=== PATIENT | female | born 1965 | race Caucasian/White ===

== ENCOUNTER 2020-04-17 15:54 | IRF | payer BC, SELFPAY ==
--- NOTE | 2020-04-17 16:28 | ADMGEN ---
This patient, Kiley Springer, was admitted to [facility] Room 219-02. Patient/family oriented to hospital policies and general routines including ID bracelet, bed and alarms, visiting hours, pain management, procedures, bathroom and other care routines, personal items, smoking policy, room service/diet, and visiting hours. Information on how to activate the Rapid Response Team has been discussed. Patient/Family are encouraged to report perceived risks to care and to ask questions if they do not understand what they are told or what they should do.
[2020-04-17 16:29] VITALS: BP 130/49; PULSE 62; RESP 16; TEMP 35.9; O2SAT 99; BMI 40.4
[2020-04-17 20:00] VITALS: O2SAT 100
[2020-04-17] MEDS: DOCUSATE SODIUM 100 MG CAPSULE PO (20:23)
[2020-04-17] MEDS: EZETIMIBE 10 MG TABLET PO (20:23)
[2020-04-17] MEDS: SIMVASTATIN 20 MG TABLET PO (20:24)
[2020-04-17] MEDS: FAMOTIDINE 20 MG TABLET PO (20:24)
[2020-04-17] MEDS: HEPARIN SODIUM 5,000 UNITS/ML VIAL 5000 UNITS SUB-Q (20:24)
[2020-04-17 20:40] VITALS: BP 113/42; PULSE 66; RESP 12; TEMP 36.6; O2SAT 100
[2020-04-18 04:44] LABS: Basophils Percent Auto 0.2 % (0.2-1.2); Eosinophils Absolute Auto 0.3 K/mm3 (0-0.3); Eosinophils Percent Auto 4.5 % (0-4.4); Hematocrit 34.6 % (37.0-47.0); Hemoglobin 10.9 g/dL (12.0-15.0); Immature Granulocyte Absolute 0.03 K/mm3 (0.00-0.031); Immature Granulocyte Percent A 0.5 % (0-0.5); Lymphocytes Percent Auto 28.7 % (18.3-44.2); Mean Corpuscular HGB Conc 31.5 g/dl (32-36); Mean Corpuscular Hemoglobin 28.9 pg (26-34); Mean Corpuscular Volume 91.8 fl (80-100); Mean Platelet Volume 10.3 fl (7.4-10.4); Monocytes Absolute Auto 0.5 K/mm3 (0.1-0.6); Monocytes Percent Auto 8.6 % (2.6-8.5); Neutrophils Absolute Auto 3.2 K/mm3 (1.3-6.7); Neutrophils Percent Auto 57.5 % (45.5-73.1); Platelet Count Result 313 k/mm3 (150-375); Red Blood Count 3.77 M/mm3 (4.2-5.4); Red Cell Distribution Width 16.8 % (11.5-14.5); White Blood Count 5.6 K/mm3 (4.5-10.0)
[2020-04-18 04:58] LABS: Anion Gap 9 mmol/L (8-16); Blood Urea Nitrogen 20 mg/dL (7-17); Calcium 9.1 mg/dL (8.4-10.2); Carbon Dioxide 27 mmol/L (22-30); Chloride 106 mmol/L (98-107); Estimated CRCL calculation 92 ml/min; Estimated Glomerular Filt Rate > 60; Glucose 110 mg/dL (65-105); Sodium 142 mmol/L (137-145)
[2020-04-18 05:33] VITALS: BP 141/83; PULSE 64; RESP 14; TEMP 36.7; O2SAT 99
[2020-04-18] MEDS: HEPARIN SODIUM 5,000 UNITS/ML VIAL 5000 UNITS SUB-Q ×3 (06:45→20:03)
[2020-04-18] MEDS: FAMOTIDINE 20 MG TABLET PO ×2 (09:44→20:01)
[2020-04-18] MEDS: CITALOPRAM HYDROBROMIDE 20 MG TABLET 40 MG PO (09:44)
[2020-04-18] MEDS: FLUTICASONE PROPIONATE 0.05% NA SPR 16 GM BTL (*BKC) 2 SPRAY NASAL (09:45)
[2020-04-18] MEDS: ACETAMINOPHEN 325 MG TABLET 650 MG PO (10:59)
--- NOTE | 2020-04-18 11:27 | PM.IMHP ---
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 on April 18, 2020 H and P The patient is a 54-year-old right-handed white woman with a past medical history of asthma, hyperlipidemia and osteoarthritis who initially presented to [facility] and then transferred / admitted to [facility] on March 31, 2020 for sudden onset of severe headache and episode of syncope and dizziness. The patient barely recalls the event and the data is obtained primarily from the screening information and also the medical records. The patient was in her usual state of health until she woke up around 7:00 a.m. on March 31 when she started experiencing symptoms and had a fall. The patient does not recall whether she hit her head or not however did injure her left arm where there is cast for the forearm. The patient denies or recalling at least any history of seizure. The blood pressure was 180/105 and she was started on nicardipine drip. Head CT at the outside hospital showed an acute subarachnoid hemorrhage and she was subsequently transferred to [facility] for further evaluation and management. CTA showed a right middle cerebral artery bifurcation aneurysm. Head CT showed a right frontotemporal/ quadrigeminal cistern subarachnoid hemorrhage. Neurosurgery was consulted and immediate surgical intervention was recommended. The patient was started on Keppra and nicardipine drip was continued. DVT prophylaxis was held 48 hours due to active bleed. The patient underwent a right craniotomy with clipping of complex right mid cerebral artery aneurysm and right frontal EVD placement by Dr. Bah. The EVD was removed on April 10, 2020. The chest x-ray was negative. Left hand x-ray showed an impacted angulated comminuted intra-articular distal radial fracture. She is nonweightbearing to the left upper extremity for nonsurgical fracture. She does have a left forearm brace. The patient remains awake and alert x4 however clearly does not have any recollection of the post trauma events happening to her. The patient is to be discharged to [facility] and heparin 5000 units for DVT prophylaxis. The heparin will be continued until the patient's stay at the rehab. The patient has not traveled outside the [place] or had contact with someone who is ill that has traveled outside the [place] in the past 21 days. The patient has not traveled to an area of the [place] that is experiencing no transmission of the Coronavirus and has not had close personal contact with anyone that has. The patient does not have a fever. The patient is not experiencing lower respiratory illness symptoms. Patient had a COVID test on April 01, 2020 which was negative. The therapies were initiated at the acute care facility and the patient was transferred to from [facility] on April 17, 2020 The patient has had major surgery in the lost 100 days. The patient has had 2 or more falls in the past year. The patient has had falls with injury in the past year. Past medical history, asthma, osteoarthritis with chronic pain bilateral knees, depression, foot pain, obesity, hyperlipidemia, irritable bowel syndrome, lymphadenitis, osteoarthritis and sciatica. Past surgical history, arthroscopic repair ACL, colonoscopy, and knee surgery. Social history, the patient is . She denies tobacco alcohol or illicit use of drugs. The patient lives with her in a 1 story home with 2 steps to enter. She was independent in all ADLs, IADLs LEs, and mobility without assistive device prior t
[2020-04-18 13:30] VITALS: BMI 40.4
[2020-04-18 14:00] VITALS: BP 147/78; PULSE 72; RESP 20; TEMP 36.2; O2SAT 100
--- NOTE | 2020-04-18 15:02 | PCNSR ---
On 04/18/20, the student, Velvet Smith, provided care and completed [facility] documentation on this patient. I have reviewed the student's documentation and agree with the findings.
[2020-04-18 20:00] VITALS: O2SAT 100
[2020-04-18] MEDS: EZETIMIBE 10 MG TABLET PO (20:00)
[2020-04-18] MEDS: SIMVASTATIN 20 MG TABLET PO (20:01)
[2020-04-18] MEDS: oxyCODONE/ACETAMINOPHEN (*CRX) 5-325 MG TABLET 2 TABLET PO (20:17)
[2020-04-18 22:00] VITALS: BP 112/60; PULSE 73; RESP 17; TEMP 36.9; O2SAT 100
[2020-04-19 06:00] VITALS: BP 121/64; PULSE 64; RESP 20; TEMP 37; O2SAT 98
[2020-04-19] MEDS: HEPARIN SODIUM 5,000 UNITS/ML VIAL 5000 UNITS SUB-Q ×3 (06:15→21:25)
[2020-04-19] MEDS: CITALOPRAM HYDROBROMIDE 20 MG TABLET 40 MG PO (08:34)
[2020-04-19] MEDS: FLUTICASONE PROPIONATE 0.05% NA SPR 16 GM BTL (*BKC) 2 SPRAY NASAL (08:34)
[2020-04-19] MEDS: FAMOTIDINE 20 MG TABLET PO ×2 (08:34→21:26)
[2020-04-19] MEDS: ACETAMINOPHEN 325 MG TABLET 650 MG PO (10:51)
--- NOTE | 2020-04-19 11:14 | WPDNEURORHBP ---
Subjective Date/time seen: 04/19/20 11:14 Interval history: this 54-year-old is here after having had repair of the complex ruptured aneurysm along with subarachnoid hemorrhage status post craniotomy she does have occasional double vision and balance issues and she requires assistance in all the activities of daily living Overall she slowly improving she denies any significant headache nausea vomiting chest pain shortness breath fever chills sore throat Review of Systems Review of Systems: All systems reviewed & are unremarkable except as noted in HPI and below Functional Status Ambulation Ability Ability to Ambulate 10 Feet: Contact Guard Ability to Ambulate 50 Feet With 2 Turns: Contact Guard Ability to Ambulate 150 Feet: Contact Guard Ambulation Assistive Devices: None Transfers Ability Ability to Transfer In/Out of Chair: Independent Exam Narrative: Exam Narrative: the patient is awake and alert oriented x4 she is little tired vital signs were stable eyes ear nose and throat is normal occasional nystagmus noted to the bilateral horizontal gaze generalized weakness of both upper lower extremities Neck is supple, longer clear cardiovascular examination is stable abdomen is soft nontender extremities reveal no deformities Objective Data Vital Signs Vital Signs: Vital Signs - 24 hr 04/18/20 14:00 04/18/20 20:00 04/18/20 22:00 Temperature 36.2 C L 36.9 C Pulse Rate 72 73 Respiratory Rate 20 17 Blood Pressure 147/78 H 112/60 Pulse Oximetry 100 100 100 04/19/20 06:00 Temperature 37.0 C Pulse Rate 64 Respiratory Rate 20 Blood Pressure 121/64 Pulse Oximetry 98 Intake/Output Intake/Output: Intake & Output 04/16/20 04/17/20 04/18/20 04/19/20 23:59 23:59 23:59 23:59 Intake Total 240 720 120 Balance 240 720 120 Meds/Results Medications: Active Medications Generic Name Dose Route Start Last Admin Trade Name Freq PRN Reason Stop Dose Admin Acetaminophen 650 mg 04/17/20 16:43 04/19/20 10:51 Acetaminophen 325 Mg Tablet PO 650 mg Q6H PRN Administration Pain (Scale Score 1-3) Albuterol 2 puff 04/17/20 16:43 Albuterol Sulfate (*Sp) Aerosol 1 Puff INHALATION Q6H PRN Shortness Of Breath Or Wheezing Citalopram Hydrobromide 40 mg 04/18/20 09:00 04/19/20 08:34 Citalopram Hydrobromide 20 Mg Tablet PO 40 mg DAILY CHERYL Administration Docusate Sodium 100 mg 04/18/20 11:03 Docusate Sodium 100 Mg Capsule PO Q12HR PRN Constipation Ezetimibe 10 mg 04/17/20 21:00 04/18/20 20:00 Ezetimibe 10 Mg Tablet PO 10 mg HS CHERYL Administration Famotidine 20 mg 04/17/20 21:00 04/19/20 08:34 Famotidine 20 Mg Tablet PO 20 mg Q12HR CHERYL Administration Fluticasone Propionate 2 spray 04/18/20 09:00 04/19/20 08:34 Fluticasone Propionate 0.05% Na Spr 16 Gm Btl (*Bkc) NASAL 2 spray DAILY CHERYL Administration Heparin Sodium (Porcine) 5,000 units 04/17/20 22:00 04/19/20 06:15 Heparin Sodium 5,000 Units/Ml Vial SUB-Q 5,000 units Q8HR CHERYL Administration Non-Formulary Medication 60 mg 04/17/20 18:00 04/19/20 10:52 Nimodipine PO 05/17/20 18:01 60 mg Q4H CHERYL Administration Ondansetron HCl 4 mg 04/17/20 16:43 Ondansetron Hcl Odt 4 Mg Tablet PO Q6H PRN Nausea And Vomiting Oxycodone/Acetaminophen 1 tablet 04/17/20 16:43 Oxycodone/Acetaminophen (*Crx) 5-325 Mg Tablet PO Q4H PRN Pain (Scale Score 4-6) Oxycodone/Acetaminophen 2 tablet 04/17/20 17:24 04/18/20 20:17 Oxycodone/Acetaminophen (*Crx) 5-325 Mg Tablet PO 2 tablet Q4H PRN Administration Pain (Scale Score 7-10) Senna 8.6 mg 04/18/20 11:04 Sennosides 8.6 Mg Tablet PO DAILY PRN Constipation Simvastatin 20 mg 04/17/20 21:00 04/18/20 20:01 Simvastatin 20 Mg Tablet PO 20 mg HS CHERYL Administration Progress Note: A&P Assessment and Plan (1) Sciatica: Code(s): M54.30 - Sciatica, unspecified
[2020-04-19 14:00] VITALS: BP 100/40; PULSE 97; RESP 18; TEMP 37.3; O2SAT 98
--- NOTE | 2020-04-19 14:17 | PCOTNOTE ---
Attempted OT treatment, but patient declined at this time due to head pain. Patient rated pain at a 3 right now and requesting medication. RN notified and reported that patient had already taken pain medication. Patient notified that medication had already been given. Patient resting in bed with a cloth on head. Will attempt again later.
[2020-04-19] MEDS: oxyCODONE/ACETAMINOPHEN (*CRX) 5-325 MG TABLET 2 TABLET PO (15:11)
--- NOTE | 2020-04-19 16:07 | RPD ---
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 Comorbidities include Asthma, hyperlipidemia, hypertension left wrist fracture non-surgical. The patient requires physician services for neurology services, medical oversight, and coordination of care. Emotional needs will be monitored as depression is a common sequelae of brain dysfunction. The patient needs physician monitoring and treatment of anemia, perioperative blood loss, monitoring for adverse reactions to new medications, monitoring of infection, pain control, asthma, hyperlipidemia, hypertension, and non surgical management of left wrist fracture. The patient requires nursing services for frequent neuro checks, anticoagulation therapy, medication management and education, pressure relief and skin care management, monitoring of labs, bowel and bladder training, and fall/safety precautions Deficits include:ADLs, Balance, Endurance, Family Training/Education, Mobility, Pain Management, ROM, Safety, Strength,Transfers Umbrella Tipper Machine/Case Management for: Discharge Planning and Patient/Family Counseling Physical Therapy: 5 days per week for 90 minutes. Treatments may include: Therapeutic Exercise, Gait Training, Neuromuscular Re-education, Transfer Training, Community Reintegration, Bed Mobility, Patient/Family Education, Wheelchair Mobility Group Therapy/Concurrent Therapy Rationales: -Improve attention span during functional activities in a distracted environment. -Enhance problem solving and/or adequate judgment skills during functional activities in a distracted environment. -Promote increased safety awareness in a distracted environment to reduce fall risk with functional tasks, transfers, and ambulation to allow a more safe, self-sufficient return to the home environment. -Improve dynamic balance skills to promote safety and independence with functional activities in a distracted environment for maximum gain. Occupational Therapy: 5 days per week for 90 minutes. Treatments may include: Therapeutic Exercise, Therapeutic Activity, Cognitive Training, Self-Care Transfer Training, Community Reintegration, Home Management, Patient/Family Education, Wheelchair Mobility Training, Energy Conservation Training Group Therapy/Concurrent Therapy Rationales: -Allow therapist to observe and teach generalization and carry-over of skills learned in individual therapy. -Enhance problem solving and sequencing skills during therapeutic activities in a distracted environment. -Promote increased safety awareness in a realistic setting to reduce fall risk with functional tasks due to visual and verbal distractions. -Increase functional level with ADLs, ADL transfers and use of adaptive equipment through therapeutic activities with others while promoting safety to allow a more safe, self-sufficient return home. Medical Prognosis: Good Anticipated Length of Stay: 12 days Rehab Goals: Eating Goal: 06-Independent Oral Hygiene Goal: 06-Independent Toileting Hygiene Goal: 06-Independent Shower/Bathe Self Goal: 06-Independent Upper Body Dressing Goal: 03-Partial/Moderate Assistance Lower Body Dressing Goal: 06-Independent Putting On/Taking Off Footwear Goal: 06-Independent Rolling Left and Right Goal: 06-Independent Sit to Lying Goal: 06-Independent Lying to Sitting on Side of Bed Goal: 06-Independent Sit to Stand Goal: 06-Independent Chair/[id number] Transfer Goal: 06-Independent Toilet Transfer Goal: 06-Independent Car Transfer Goal: 06-Independent Walk 10' Goal: 06-Independent Walk 50' with Two Turns Goal: 06-Independent Walk 150' Goal: 06-Independent Walk 10' on Uneven Surface Goal: 06-Independent 1 Step (Curb) Goal: 06-Independent 4 Steps Goal: 06-Independent 12 Steps Goal Score: 06-Independent Picking Up
[2020-04-19] MEDS: SIMVASTATIN 20 MG TABLET PO (21:26)
[2020-04-19] MEDS: EZETIMIBE 10 MG TABLET PO (21:26)
[2020-04-19 22:00] VITALS: BP 105/39; PULSE 69; RESP 14; TEMP 36.7; O2SAT 97
[2020-04-20] MEDS: HEPARIN SODIUM 5,000 UNITS/ML VIAL 5000 UNITS SUB-Q ×3 (05:45→21:23)
[2020-04-20 06:00] VITALS: BP 103/52; PULSE 66; RESP 16; TEMP 36.5; O2SAT 100
[2020-04-20] MEDS: FLUTICASONE PROPIONATE 0.05% NA SPR 16 GM BTL (*BKC) 2 SPRAY NASAL (08:48)
[2020-04-20] MEDS: FAMOTIDINE 20 MG TABLET PO ×2 (08:48→21:23)
[2020-04-20] MEDS: CITALOPRAM HYDROBROMIDE 20 MG TABLET 40 MG PO (08:48)
[2020-04-20] MEDS: ACETAMINOPHEN 325 MG TABLET 650 MG PO (13:45)
[2020-04-20 14:00] VITALS: BP 130/64; PULSE 73; RESP 16; TEMP 36.6; O2SAT 97
[2020-04-20] MEDS: EZETIMIBE 10 MG TABLET PO (21:23)
[2020-04-20] MEDS: SIMVASTATIN 20 MG TABLET PO (21:23)
[2020-04-20] MEDS: oxyCODONE/ACETAMINOPHEN (*CRX) 5-325 MG TABLET 2 TABLET PO (21:29)
[2020-04-20 21:30] VITALS: BP 120/52; PULSE 71; RESP 18; TEMP 36.4; O2SAT 98
[2020-04-21] MEDS: HEPARIN SODIUM 5,000 UNITS/ML VIAL 5000 UNITS SUB-Q (05:58)
[2020-04-21 06:00] VITALS: BP 138/76; PULSE 61; RESP 16; TEMP 36.6; O2SAT 99
[2020-04-21] MEDS: FLUTICASONE PROPIONATE 0.05% NA SPR 16 GM BTL (*BKC) 2 SPRAY NASAL (09:07)
[2020-04-21] MEDS: CITALOPRAM HYDROBROMIDE 20 MG TABLET 40 MG PO (09:07)
[2020-04-21] MEDS: FAMOTIDINE 20 MG TABLET PO ×2 (09:07→20:31)
--- NOTE | 2020-04-21 10:21 | WPDNEURORHBP ---
Subjective Date/time seen: 04/21/20 10:21 Interval history: this very pleasant 54-year-old is here status post craniotomy for clipping of the cerebral ruptured aneurysm with subarachnoid hemorrhage for which she has been treated with nifedipine in the appropriate dosages the patient's headache are slowly getting better there is no nausea vomiting chest pain shortness of breath resume paresthesias or focal nausea as been walking quite a bit and doing report remarkably well and probably will be ready to be discharged by the weekend Review of Systems Review of Systems: All systems reviewed & are unremarkable except as noted in HPI and below Functional Status Ambulation Ability Ability to Ambulate 10 Feet: Independent Ability to Ambulate 50 Feet With 2 Turns: Independent Ability to Ambulate 150 Feet: Independent Ambulation Assistive Devices: None Transfers Ability Ability to Transfer In/Out of Chair: Independent Exam Narrative: Exam Narrative: patient is awake alert well oriented time place and person much more alert and much more communicative able to walk more than 150 feet the little assistance [place] no Flick normal neck is supple lungs are clear cardiovascular exam showed negative abdomen soft nontender extremities reveal no deformities Objective Data Vital Signs Vital Signs: Vital Signs - 24 hr 04/20/20 14:00 04/20/20 21:30 04/21/20 06:00 Temperature 36.6 C 36.4 C 36.6 C Pulse Rate 73 71 61 Respiratory Rate 16 18 16 Blood Pressure 130/64 120/52 L 138/76 Pulse Oximetry 97 98 99 Intake/Output Intake/Output: Intake & Output 04/18/20 04/19/20 04/20/20 04/21/20 23:59 23:59 23:59 23:59 Intake Total 720 560 720 240 Balance 720 560 720 240 Meds/Results Medications: Active Medications Generic Name Dose Route Start Last Admin Trade Name Freq PRN Reason Stop Dose Admin Acetaminophen 650 mg 04/17/20 16:43 04/20/20 13:45 Acetaminophen 325 Mg Tablet PO 650 mg Q6H PRN Administration Pain (Scale Score 1-3) Albuterol 2 puff 04/17/20 16:43 Albuterol Sulfate (*Sp) Aerosol 1 Puff INHALATION Q6H PRN Shortness Of Breath Or Wheezing Citalopram Hydrobromide 40 mg 04/18/20 09:00 04/21/20 09:07 Citalopram Hydrobromide 20 Mg Tablet PO 40 mg DAILY CHERYL Administration Docusate Sodium 100 mg 04/18/20 11:03 Docusate Sodium 100 Mg Capsule PO Q12HR PRN Constipation Ezetimibe 10 mg 04/17/20 21:00 04/20/20 21:23 Ezetimibe 10 Mg Tablet PO 10 mg HS CHERYL Administration Famotidine 20 mg 04/17/20 21:00 04/21/20 09:07 Famotidine 20 Mg Tablet PO 20 mg Q12HR CHERYL Administration Fluticasone Propionate 2 spray 04/18/20 09:00 04/21/20 09:07 Fluticasone Propionate 0.05% Na Spr 16 Gm Btl (*Bkc) NASAL 2 spray DAILY CHERYL Administration Non-Formulary Medication 60 mg 04/17/20 18:00 04/21/20 09:07 Nimodipine PO 05/17/20 18:01 60 mg Q4H CHERYL Administration Ondansetron HCl 4 mg 04/17/20 16:43 Ondansetron Hcl Odt 4 Mg Tablet PO Q6H PRN Nausea And Vomiting Oxycodone/Acetaminophen 1 tablet 04/17/20 16:43 Oxycodone/Acetaminophen (*Crx) 5-325 Mg Tablet PO Q4H PRN Pain (Scale Score 4-6) Oxycodone/Acetaminophen 2 tablet 04/17/20 17:24 04/20/20 21:29 Oxycodone/Acetaminophen (*Crx) 5-325 Mg Tablet PO 2 tablet Q4H PRN Administration Pain (Scale Score 7-10) Senna 8.6 mg 04/18/20 11:04 Sennosides 8.6 Mg Tablet PO DAILY PRN Constipation Simvastatin 20 mg 04/17/20 21:00 04/20/20 21:23 Simvastatin 20 Mg Tablet PO 20 mg HS CHERYL Administration Progress Note: A&P Assessment and Plan (1) Sciatica: Code(s): M54.30 - Sciatica, unspecified side Status: Acute (2) Osteoarthritis: Code(s): M19.90 - Unspecified osteoarthritis, unspecified site Status: Acute (3) Irritable bowel syndrome: Code(s): K58.9 - Irritable bowel syndrome without diarrhea S
[2020-04-21 11:30] VITALS: BP 120/76; PULSE 80
[2020-04-21 14:00] VITALS: BP 109/61; PULSE 68; RESP 16; TEMP 36.8; O2SAT 98
[2020-04-21] MEDS: EZETIMIBE 10 MG TABLET PO (20:31)
[2020-04-21] MEDS: SIMVASTATIN 20 MG TABLET PO (20:31)
[2020-04-21 20:47] VITALS: BP 110/49; PULSE 74; RESP 16; TEMP 36.7; O2SAT 98
[2020-04-22 05:53] VITALS: BP 114/53; PULSE 72; RESP 16; TEMP 36.4; O2SAT 98
[2020-04-22 08:00] VITALS: PULSE 72; RESP 16; O2SAT 98
[2020-04-22] MEDS: CITALOPRAM HYDROBROMIDE 20 MG TABLET 40 MG PO (08:45)
[2020-04-22] MEDS: FAMOTIDINE 20 MG TABLET PO ×2 (08:45→19:50)
[2020-04-22] MEDS: oxyCODONE/ACETAMINOPHEN (*CRX) 5-325 MG TABLET 2 TABLET PO (08:46)
[2020-04-22] MEDS: FLUTICASONE PROPIONATE 0.05% NA SPR 16 GM BTL (*BKC) 2 SPRAY NASAL (08:46)
--- NOTE | 2020-04-22 13:23 | WPDNEURORHBP ---
Subjective Date/time seen: 04/22/20 13:23 54 years old lady admitted to the rehab floor with history of craniotomy for the clipping of ruptured aneurysm and also history of treatment with nifedipine for post clipping constrictive syndrome remains stable here and did very well with the therapy, receiving site elope ramp 40 mg daily with simvastatin 20 mg daily Zetia 10 mg daily,famotidine 20 mg q.12 hours. lab on April 18, 2020 fairly normal except that she is mildly anemic she is being considered to be discharged tomorrow and her condition is stable Review of Systems Review of Systems: All systems reviewed & are unremarkable except as noted in HPI and below Functional Status Ambulation Ability Ability to Ambulate 10 Feet: Independent Ability to Ambulate 50 Feet With 2 Turns: Independent Ability to Ambulate 150 Feet: Independent Ambulation Assistive Devices: None Transfers Ability Ability to Transfer In/Out of Chair: Independent Exam Narrative: Exam Narrative: on examination today she is awake alert cooperative, in no obvious acute distress, obviously more communicative, able to walk better, heart regular, lungs clear, abdomen soft and neuro unchanged Objective Data Vital Signs Vital Signs: Vital Signs - 24 hr 04/21/20 14:00 04/21/20 20:47 04/22/20 05:53 Temperature 36.8 C 36.7 C 36.4 C L Pulse Rate 68 74 72 Respiratory Rate 16 16 16 Blood Pressure 109/61 110/49 L 114/53 L Pulse Oximetry 98 98 98 04/22/20 08:00 Temperature Pulse Rate 72 Respiratory Rate 16 Blood Pressure Pulse Oximetry 98 Intake/Output Intake/Output: Intake & Output 04/19/20 04/20/20 04/21/20 04/22/20 23:59 23:59 23:59 23:59 Intake Total 560 720 720 480 Balance 560 720 720 480 Meds/Results Medications: Active Medications Generic Name Dose Route Start Last Admin Trade Name Freq PRN Reason Stop Dose Admin Acetaminophen 650 mg 04/17/20 16:43 04/20/20 13:45 Acetaminophen 325 Mg Tablet PO 650 mg Q6H PRN Administration Pain (Scale Score 1-3) Albuterol 2 puff 04/17/20 16:43 Albuterol Sulfate (*Sp) Aerosol 1 Puff INHALATION Q6H PRN Shortness Of Breath Or Wheezing Citalopram Hydrobromide 40 mg 04/18/20 09:00 04/22/20 08:45 Citalopram Hydrobromide 20 Mg Tablet PO 40 mg DAILY CHERYL Administration Docusate Sodium 100 mg 04/18/20 11:03 Docusate Sodium 100 Mg Capsule PO Q12HR PRN Constipation Ezetimibe 10 mg 04/17/20 21:00 04/21/20 20:31 Ezetimibe 10 Mg Tablet PO 10 mg HS CHERYL Administration Famotidine 20 mg 04/17/20 21:00 04/22/20 08:45 Famotidine 20 Mg Tablet PO 20 mg Q12HR CHERYL Administration Fluticasone Propionate 2 spray 04/18/20 09:00 04/22/20 08:46 Fluticasone Propionate 0.05% Na Spr 16 Gm Btl (*Bkc) NASAL 2 spray DAILY CHERYL Administration Ondansetron HCl 4 mg 04/17/20 16:43 Ondansetron Hcl Odt 4 Mg Tablet PO Q6H PRN Nausea And Vomiting Oxycodone/Acetaminophen 1 tablet 04/17/20 16:43 Oxycodone/Acetaminophen (*Crx) 5-325 Mg Tablet PO Q4H PRN Pain (Scale Score 4-6) Oxycodone/Acetaminophen 2 tablet 04/17/20 17:24 04/22/20 08:46 Oxycodone/Acetaminophen (*Crx) 5-325 Mg Tablet PO 2 tablet Q4H PRN Administration Pain (Scale Score 7-10) Senna 8.6 mg 04/18/20 11:04 Sennosides 8.6 Mg Tablet PO DAILY PRN Constipation Simvastatin 20 mg 04/17/20 21:00 04/21/20 20:31 Simvastatin 20 Mg Tablet PO 20 mg HS CHERYL Administration Progress Note: A&P Assessment and Plan (1) Sciatica: Code(s): M54.30 - Sciatica, unspecified side Status: Acute (2) Osteoarthritis: Code(s): M19.90 - Unspecified osteoarthritis, unspecified site Status: Acute (3) Irritable bowel syndrome: Code(s): K58.9 - Irritable bowel syndrome without diarrhea Status: Acute (4) Obesity: Code(s): E66.9 - Obesity, unspecified Status: Acute (5) Chronic pain
[2020-04-22 14:00] VITALS: BP 125/68; PULSE 67; RESP 18; TEMP 36.8; O2SAT 98
[2020-04-22] MEDS: EZETIMIBE 10 MG TABLET PO (19:50)
[2020-04-22] MEDS: SIMVASTATIN 20 MG TABLET PO (19:50)
[2020-04-22 22:00] VITALS: BP 109/56; PULSE 71; RESP 20; TEMP 36.9; O2SAT 98
[2020-04-23 06:00] VITALS: BP 126/69; PULSE 62; RESP 20; TEMP 36.5; O2SAT 98
[2020-04-23 08:00] VITALS: PULSE 62; RESP 20; O2SAT 98
[2020-04-23] MEDS: CITALOPRAM HYDROBROMIDE 20 MG TABLET 40 MG PO (08:43)
[2020-04-23] MEDS: FLUTICASONE PROPIONATE 0.05% NA SPR 16 GM BTL (*BKC) 2 SPRAY NASAL (08:43)
[2020-04-23] MEDS: FAMOTIDINE 20 MG TABLET PO (08:43)
[2020-04-23] MEDS: oxyCODONE/ACETAMINOPHEN (*CRX) 5-325 MG TABLET 2 TABLET PO (10:20)
--- NOTE | 2020-04-27 11:52 | PM.DS ---
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 Bronchial asthma 2. Hyperlipidemia 3. Osteoarthritis she was initially admitted to [facility] in [place] for complaint of sudden onset of severe headache and syncopal episode with dizziness. she was unable to recall the incident. she was found to have elevated blood pressure and was started on nicardipine drip CT scan documented acute subarachnoid hemorrhage and she was subsequently transferred to [facility] for further care where CT a documented right middle cerebral artery bifurcation aneurysm also right frontal temporal and quadrigeminal cistern subarachnoid hemorrhage. she was started on the Keppra and nicardipine drip. she underwent right craniotomy with clipping of complex right mid cerebral artery aneurysm and right frontal EVD placement. EGD was removed on April 10, 2020 she was also found to have the impacted angulated comminuted intra-articular distal radial fracture on radiological investigation for which she was in nonweightbearing status and also had the left forearm brace. she was continued on the heparin drip for DVT prophylaxis during the hospitalization. on the rehab floor she continues to be involved in the physical therapy and occupational therapy at the time of discharge she was independently ambulating up to 150ft and was able to transfer in and out of chair independently her general physical examination remained stable, no other consultants were involved in her care during this hospitalization here and she had no fall she was referred to the home outpatient therapy and her condition definitely improved at the time of discharge. she was independent in all the modalities particularly eating,, oral hygiene, toileting, rolling in bed, sit to lying ,lying to sit, [id number], ,chair transfer, toilet transfer, car transfer, walking 10ft and 50ft with 2 turns, walking up to 150ft, walking on 10fton uneven surfaces 4 steps 12 steps and picking up objects,wheelchair was not applicable, only require supervision for bathing and partial assistance for upper body dressing and lower body dressing and supervision for footwear.her condition improved. DS: Summary Time Spent with Patient Time attestation: Total time spent providing and/or coordinating discharge services: Discharge Plan Discharge Attending physician on discharge: Luis Dunlap Discharging Clinician: Luis Dunlap Anticipated Discharge Date/Time: 04/23/20 10:25 Patient Disposition: Home, Self-Care Activity: may shower, no driving, follow weight bearing status and other - see discharge instructions Diet: as tolerated Wound Care Instructions: follow printed instructions Discharge Instructions: Dr Demar Tapia MD (resident) was the orthopedic doctor that seen you at the previous hospital. Their number is [phone]. You can call there to follow up regarding weight bearing status for your left wrist. No weight bearing to left wrist. Patient Instructions: Antibiotic Form, Heparin (By injection), Pain Management (DC), Subarachnoid Hemorrhage (DC) Stand Alone Forms: General Discharge Information Follow-up/Referrals: HEMA Kaur [Other] (Follow up with your primary care physician as soon as you are able due to medication changes. ) Dr Austin Bah [Other] (please follow up with Dr Bah (with a head CT for imaging) as soon as you are able to leave rehab. Someone from central scheduling will call you with appointment date and time. ) Discharge Medications: New sennosides [Senokot] 8.6 mg Tablet 8.6 mg PO DAILY PRN (Reason: Constipation) Qty
== END 2020-04-23 10:42 | disposition home or self-care (01) | DRG 949 ==
PROVIDERS: Admitting Provider Psychiatry & Neurology Neurology; PCP Nurse Practitioner; Visit Provider Psychiatry & Neurology Neurology
DX: Z48.811 Encounter for surgical aftercare following surgery on the nervous system (principal); Z68.41 Body mass index [BMI] 40.0-44.9, adult; I69.098 Other sequelae following nontraumatic subarachnoid hemorrhage; H53.2 Diplopia; S52.572D Other intraarticular fracture of lower end of left radius, subsequent encounter for closed fracture with routine healing; E78.5 Hyperlipidemia, unspecified; E66.9 Obesity, unspecified; H02.402 Unspecified ptosis of left eyelid; J45.909 Unspecified asthma, uncomplicated; K58.9 Irritable bowel syndrome, unspecified; M17.0 Bilateral primary osteoarthritis of knee; M54.30 Sciatica, unspecified side; W19.XXXD Unspecified fall, subsequent encounter
CPT/HCPCS: 36415; 80048; 85025; 97110; 97112; 97116; 97161; 97165; 97530; 97535; A9270; J1644